=== PATIENT | female | born 1995 | race Caucasian/White ===

== ENCOUNTER 2017-04-15 23:23 | Emergency (ER) | payer MEDICAID ==
[~2017-04-15] VITALS: Ht 172.7 cm; Wt 68.0 kg
[2017-04-15 23:41] LABS: URINE BLOOD 3+ (NEG)
--- NOTE | 2017-04-15 23:41 | Emergency Room Report ---
History of Present Illness Time Seen by [id number] Presenting Problem in Triage Pt arrived:Walked Presenting Problem:A FEW DAYS WORTH OF CRAMPING AND BLEEDING WHEN SHE HAS A BOWEL. Onset of symptoms date/time:04/15/17 or onset unknown for: Treatment Prior to Arrival: [employer] Provided by: Sepsis Risk Assessment: Temp: 97.9 B/P: 109/61 MAP: 77 Pulse: 96 Resp: 14 Recent fever? N Clinical Suspician of Infection? N Mental Status: 1 - Regular (Normal Baseline) Sepsis Risk:Low Sepsis Risk Have you (or family members/close friends) recently traveled outside the [place]? N If Yes, where/when: Have you had exposure to infectious disease within the past month? N TB? Other? 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 Respiratory denies cough, denies shortness of breath, denies wheezing Cardiovascular denies chest pain, denies palpitations, denies syncope Gastrointestinal denies abdominal pain, denies diarrhea, denies vomiting Genitourinary see HPI, frequency. denies: abnormal vaginal bleeding, dysuria, hesitancy, hematuria. Musculoskeletal denies back pain, denies joint pain, denies joint swelling, denies neck pain Skin denies rash Psychiatric/Neurological denies headache, denies seizure Physical Exam Vital Signs Vital Signs Date Time Temp Pulse Resp B/P Pulse O2 O2 Flow FiO2 Ox Delivery Rate 04/152 97.9 96 14 109/61 96 - WBC >12,000 or <4,000 or 10% bands? 2 or more SIRS Criteria Met? B/P:109/61 MAP:77 Creatinine >2.0? UA output<0.5ml/kg/hr for 2 hrs? Platelet count >100,000? Lactate >2.0mmol/1? INR >1.2 or PTT > than 60 sec? Evidence of Organ Dysfunction? Provider documented clinical suspician of infection? N Sepsis Criteria Count: 1 Sepsis Risk: Low Sepsis Risk General Appearance no apparent distress Eye Exam - bilateral eye PERRL, bilateral eye EOMI Ear, Nose, Throat normal ENT inspection Neck supple Respiratory Status No: respiratory distress. Cardiovascular regular rate/rhythm Peripheral Pulses Pulses normal Yes Gastrointestinal soft, no organomegaly, no pulsatile mass, no guarding, no rebound Extremities normal inspection Strength 4 Upper Ext (L), 4 Upper Ext (R), 4 Lower Ext (L), 4 Lower Ext (R) Rectal normal rectal tone, heme negative stool, small ext hemmoroid noted Nurse present during exam? 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 No Results/Orders Laboratory Tests 04/15/177: Sodium 141, Potassium 3.7, Chloride 108 H, Carbon Dioxide 25, BUN 8, Creatinine 0.8, Estimated Creat Clear 120, Estimated GFR (MDRD) 91, Glucose 101, Calcium 8.8, Total Bilirubin 0.3, AST 41 H, ALT 56, Alkaline Phosphatase 62, Total Protein 7.0, Albumin 3.6, Globulin 3.4 H, Albumin/Globulin Ratio 1.1, WBC 7.0, RBC 4.10 L, Hgb 11.8 L, Hct 36.0 L, MCV 87.7, RDW 14.4, Plt Count 280, Gran % 66.2, Gran # 4.6, Lymphocytes % 27.7, Monocytes % 6.1, Lymphocytes # 1.9, Monocytes # 0.4, PUBS MCHC 32.8, ESR Pending, MCH 28.8 04/15/17 2344: Stool Occult Blood NEGATIVE, Urine Color YELLOW, Urine Appearance CLEAR, Urine pH 5.5, Ur Specific [place] >= 1.030, Urine Protein TRACE H, Urine Ketones NEGATIVE, Urine Blood 3+ H, Urine Nitrate NEGATIVE, Urine Bilirubin NEGATIVE, Urine Urobilinogen 1.0, Ur Leukocyte Esterase NEGATIVE, Urine RBC 10-20, Urine WBC 3-5, Ur Squamous Epith Cells 3-5, Urine Bacteria 1+, Urine Mucus 1+, Urine Glucose NEGATIVE 04/15/172328: Sodium Cancelled, Potassium Cancelled, Chloride Cancelled, Carbon Dioxide Cancelled, BUN Cancelled, Creatinine Cancelled, Estimated Creat Clear Cancelled, Estimated GFR (MDRD) Cancelled, Glucose Cancelled, Calcium Cancelled, Total Bilirubin Cancelled, AST Cancelled, ALT Cancelled, Alkaline Phosphatase Cancelled, Total Protein Cancelled, Albumin Cancelled, Globulin Cancelled, Albumin/Globulin Ratio Cancelled, WBC Cancelled, RBC Cancelled, Hgb Cancelled, Hct Cancelled, MCV Cancelled, RDW Cancelled, Plt Count Cancelled, Gran % Cancelled, Gran # Cancelled, Lymphocytes % Cancelled, Eosinophils % Cancelled, Basophils % Cancelled, Lymphocytes # Cancelled, Eosinophils # Cancelled, Basophils # Cancelled, PUBS MCHC Cancelled, MCH Cancelled Current Medication Orders Sig/Kevon Start time Last Medication Dose Route Stop Time Status Admin Sodium Chloride 10 ML PRN PRN 04/15 2345 AC IV 04/16 2355 Sodium Chloride 10 ML PRN PRN 04/15 2330 AC IV 04/16 2329 Orders Procedure Date/time Status IV SALINE LOCK 04/15 2355 Active URINE 04/15 2341 Complete SED RATE 04/15 2341 Active COMPLETE METABOLIC PANEL 04/15 2341 Complete CBC WITH AUTO DIFF 04/15 2341 Active Urine Test, Perform/ 04/15 2331 Active URINALYSIS/COMPLETE 04/15 2329 Complete STOOL OCCULT BLOOD 04/15 2329 Complete Departure Departure Time of Disposition 0013 Disposition DC Home or Self Care(routine) Clinical Impression Primary Impression: Rectal bleeding Secondary Impressions: Hematuria Qualifiers: Hematuria type: unspecified type Qualified Code: R31.9 - Hematuria, unspecified Condition STABLE Patient Instructions DI for Hematuria Additional Instructions use meds and see pcp for follow up Discharge Counseling Counseled pt/family regarding diagnosis, test results, medications/RX, follow up needs Prescriptions Current Visit Scripts Ciprofloxacin HCl (Cipro 500MG TAB) 500 MG PO BID #14 TAB Phenazopyridine HCl (Pyridium) 200 MG PO TID #15 TAB ED [place] [address]
[2017-04-15 23:44] LABS: URINE BILIRUBIN - DIPSTICK NEGATIVE (NEG)
[2017-04-15] MEDS ORDERED: SUBOXONE 8 MG-21 FIL SL (23:44)
[2017-04-16 00:05] LABS: HEMOGLOBIN 11.8 g/dL (12.2-16.2); LYMPH % 27.7 % (10-50.0)
[2017-04-16 00:06] LABS: LYMPH # 1.9 K/mm3 (0.7-4.5)
[2017-04-16 00:16] LABS: STOOL OCCULT BLOOD NEGATIVE (NEG)
[2017-04-16] MEDS ORDERED: CIPRO 500MG TA500 MG PO (00:23)
[2017-04-16] MEDS ORDERED: PYRIDIUM200 M2 PO (00:23)
[2017-04-16 00:43] VITALS: BP 119/50
== END 2017-04-16 00:50 | disposition home or self-care (01) ==
LOC: ER 23:23
PROVIDERS: Emergency Medicine
DX: K62.5 Hemorrhage of anus and rectum (principal); K64.4 Residual hemorrhoidal skin tags; R31.9 Hematuria, unspecified; F17.210 Nicotine dependence, cigarettes, uncomplicated
CPT/HCPCS: G0328